=== PATIENT | male | born 1955 | race Caucasian/White ===

== ENCOUNTER 2017-10-14 10:28 | Inpatient (IN) | payer OTHER ==
[~2017-10-14] VITALS: Ht 175.3 cm; Wt 101.6 kg
--- NOTE | ~2017-10-14 | EKG ---
[address] [place] [address] ELECTROCARDIOGRAM REPORT Name: MARTINA WORRELL Room #: 200-I ADM IN M.R.#: [id number] Admission: 10/14/17 Attend Phys: Adin Maxwell MD, Discharge: Date of : 55 Report #: [id number] THIS REPORT FOR: //name// [facility] Test Date: 2017-10-16 Test Time: 06:32:52 Pat Name: MARTINA WORRELL Department: Room: 200 I Gender: M Biology Faculty Member: DIEUDONNE : 1955 Requested By: Adin Maxwell Order Number: [id number] MD: Royce Figueroa Measurements Intervals [place] Rate: 61 P: 73 ID: 155 QRS: 74 QRSD: 115 T: 207 QT: 479 QTc: 483 Interpretive Statements Sinus rhythm Premature supraventricular complexes Nonspecific intraventricular conduction delay Anterior infarct, old Nonspecific T abnormalities, lateral leads Compared to ECG 10/15/2017 07:17:16 No significant change was found Electronically Signed On 10-16-2017 9:20:07 PAWN SHOP KEEPER by Royce Figueroa [email or web address] <ELECTRONICALLY SIGNED> By: Royce Figueroa MD, [facility] 10/16/17 0920 0632 0632 Royce Figueroa MD, [facility] /EPI
--- NOTE | ~2017-10-14 | EKG ---
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 : 1955 Requested By: Annette Gordon Order Number: [id number] MD: Royce Figueroa Measurements Intervals [place] Rate: 61 P: 35 AK: 161 QRS: 54 QRSD: 125 T: 189 QT: 458 QTc: 462 Interpretive Statements Sinus rhythm Atrial premature complex Nonspecific intraventricular conduction delay Nonspecific ST and T wave abnormality Baseline wander in lead(s) V3 Compared to ECG 06/30/2016 07:20:17 No significant change was found Electronically Signed On 10-15-2017 8:28:43 SENIOR TECHNICAL PROGRAM MANAGER by Royce Figueroa [email or web address] <ELECTRONICALLY SIGNED> By: Royce Figueroa MD, [facility] 10/15/17 0828 6 6 Royce Figueroa MD, [facility] /EPI
--- NOTE | ~2017-10-14 | D ---
[facility] [place] [address] DISCHARGE SUMMARY Name: MARTINA WORRELL Lashay Room #: 200-I [facility] IN .R.#: [id number] Admission: 10/14/17 Attend Phys: Adin Maxwell MD, Discharge: Date of : 55 Report #: [id number] THIS REPORT FOR: //name// CC: Adin Hill DO DATE OF SERVICE: 10/16/2017 HOSPITAL COURSE: The patient is a 62-year-old male admitted for recurrent VT and near syncope. Subsequently, brought in to the CCU ruled out and then taken to the catheterization lab to rule out underlying ischemia. There was evidence of high-grade in the proximal and mid solomon circumflex stenosis. I was able to dilate this and stent this with medicated stents. It was a 2.75 x 22 in the proximal circumflex and a 2.75 x 12 in the mid circumflex, there was a more distal stent, which had mild restenosis. There was an SVG to a posterior lateral branch that was intact. The PDA was occluded and the solomon right was occluded. The LAD was occluded and filled via BOONE. LV function mildly reduced. These stents were postdilated up to 3.1 mm in size and he has done well. His ventricular ectopy is markedly improved. So, it may be that this was certainly VT may have had an ischemic component here. The ejection fraction is in the 30% range on echo. I did not perform that LV. I did take LV pressure measurements and a right heart catheterization, which also had a wedge pressure of 20. He was diuresed aggressively and will be sent home on Demadex 20, Crestor 20, full aspirin, Plavix 75, we will hold on valsartan for now, Protonix, amiodarone 400 mg a day, albuterol, insulin, potassium, Flexeril p.r.n., Cardura 2 mg at night, hydrocodone p.r.n. 10/325. He has followup scheduled in 1 week in our office. No lifting for 48 hours, no lying in tub, Jacuzzi or myles for a week. No MRI or dental work for 3 months. DISCHARGE DIAGNOSES: 1. Recurrent ventricular tachycardia probable ischemic driven, resolving. 2. Coronary artery disease with successful percutaneous transluminal coronary angioplasty stent of the solomon circumflex with left internal mammary artery graft intact to a saphenous vein graft to a posterior lateral intact posterior descending artery occluded. 3. Moderate ischemic cardiomyopathy. 4. Diabetes. 5. Hypertension. 6. Hypercholesterolemia. 7. Chronic obstructive pulmonary disease. [address] [address] DISCHARGE SUMMARY Name: MARTINA WORRELL Room #: 200-I [facility] IN ..#: [id number] Admission: 10/14/17 Attend Phys: Adin Maxwell MD, Discharge: Date of : 55 Report #: [id number] Thank you for asking me to assist in the care of this patient. By: 0921 0946 Adin Maxwell MD, FACC /nt
--- NOTE | ~2017-10-14 | 2DMMODE ---
[facility] [place] [address] 2 D/M-MODE ECHOCARDIOGRAM Name: MARTINA WORRELL Room #: 200-I ADM IN [facility]#: [id number] Admission: 10/14/17 Attend Phys: Adin Maxwell, Discharge: Date of : 55 Date of Service: 10/14/17 1552 Report #: [id number] THIS REPORT FOR: //name// APPROVED REPORT Study performed: 10/14/2017 13:13:43 EXAM: Comprehensive 2D, Doppler, and color-flow Echocardiogram Patient Location: Bedside Room #: 200 Status: routine BSA: 2.17 HR: 68 bpm BP: 105/70 mmHg Other Information Study Quality: Adequate Indications ICD 2D Dimensions RVDd: 47.51 mm LVEF(%): 23.08 (>50%) IVSd: 14.13 (7-11mm) LVOT Diam: 22.03 (18-24mm) LVDd: 65.24 mm PWd: 14.98 (7-11mm) Ascending Ao: 38.28 (22-36mm) LVDs: 58.15 (25-40mm) Aortic Root: 34.80 mm IVC: 26.00 mm Mari's LVEF: 23.08 % Volumes Left Atrial Volume (Systole) Single Plane 4CH: 146.58 mL Single Plane 2CH: 153.69 mL LA ESV Index: 81.00 mL/m2 Aortic Valve AoV Peak Mauricio.: 1.47 m/s AO Peak Gr.: 8.67 mmHg LVOT Max P.08 mmHg LVOT Max V: 0.88 m/s DORETHA Vmax: 2.27 cm2 Mitral Valve E/A Ratio: 2.1 MV Decel. Time: 166.83 ms MV E Max Mauricio.: 1.50 m/s [facility] [place] [address] 2 D/M-MODE ECHOCARDIOGRAM Name: MARTINA WORRELL Room #: 200-I [facility] IN .R.#: [id number] Admission: 10/14/17 Attend Phys: Adin Maxwell, Discharge: Date of : 55 Date of Service: 10/14/17 1552 Report #: [id number] MV A Mauricio.: 0.70 m/s MV PHT: 48.38 ms IVRT: 73.82 ms Pulmonary Valve PV Peak Mauricio.: 1.29 m/s PV Peak Gr.: 6.70 mmHg Pulmonary Vein P Vein S: 0.63 m/s P Vein A: 0.11 m/s P Vein D: 0.93 m/s P Vein A Dur.: 78.4 msec P Vein S/D Ratio: 0.68 Tricuspid Valve TR Peak Mauricio.: 2.87 m/s TR Peak Gr.: 32.96 mmHg PA Pressure: 43.00 mmHg Left Ventricle Left ventricle is dilated. There is global hypokinesis of the left ventricle. Mild concentric left ventricular hypertrophy. Left ventricular ejection fraction is severely decreased. LVEF 30%. Grade IV - fixed restrictive diastolic dysfunction. Right Ventricle The right ventricle is normal size. The right ventricular systolic function is normal. Atria Left atrium is dilated. Right atrium is dilated. Device lead is present in the right atrium. Aortic Valve Aortic valve is calcified, trileaflet. No aortic regurgitation is present. There is no aortic valvular stenosis. Mitral Valve The mitral valve is normal in structure. Moderate mitral regurgitation. No evidence of mitral valve stenosis. Tricuspid Valve The tricuspid valve is normal in structure. There is mild tricuspid regurgitation. Estimated PAP 45 mmHg. There is moderate pulmonary hypertension. Pulmonic Valve The pulmonary valve is normal in structure. Mild pulmonic [facility] [address] [place] [address] 2 D/M-MODE ECHOCARDIOGRAM Name: MARTINA WORRELL Room #: 200-I ADM IN [facility]#: [id number] Admission: 10/14/17 Attend Phys: Adin Maxwell, Discharge: Date of : 55 Date of Service: 10/14/17 1552 Report #: [id number] regurgitation. Great Vessels The aortic root is normal in size. IVC is dilated and collapses >50% with inspiration. Pericardium There is no pericardial effusion. <Conclusion> Left ventricular ejection fraction is severely decreased. LVEF 30%. Both atria are dilated. ICD lead in right heart Aortic valve is calcified, trileaflet. No aortic regurgitation or stenosis The mitral valve is normal in structure. Moderate mitral regurgitation. Pulmonary artery pressure of 45mmHg There is no pericardial effusion. <ELECTRONICALLY SIGNED> By: Royce Figueroa MD, FACC 10/14/17 155 51 51 Royce Figueroa MD, FACC /INF
--- NOTE | ~2017-10-14 | CATHLAB ---
[facility] [place] [address] INVASIVE PROCEDURE REPORT Name: MARTINA WORRELL Room #: 200-I ADM IN [facility]#: [id number] Admission: 10/14/17 Attend Phys: Adin Maxwell, Discharge: Date of : 55 Date of Service: 10/15/17 1719 Report #: [id number] THIS REPORT FOR: //name// APPROVED REPORT Patient Details Patient Status: In-Patient Room #: The patient is a 62 year-old male Event Personnel Adin Maxwell Sports Management Professor, Sonya Huggins Monitor, Aurelio Fraser RN, Tricia Parikh Monitor Procedures Performed Art Access - R femoral artery* Grant Access - R femoral vein Right and Left Heart Cath Lt Vent/Cors/Grafts [id number] RLLVCORCAB 81169 Initial Mod Sed Same Phys/QHP Gr5y [id number] 16810 Mod Sed Same Phys/QHP Ea 389667 Renal Bilateral Peripheral Angiography [id number] CVRENALBIL Hemostasis w/ Mynx JOSSY Place w/wo Plasty Single CIRC 295165 Procedure Narrative The patient was brought urgently to the Cardiac Catheterization Laboratory and was prepped and draped in a sterile manner. The Right Groin^ was infiltrated with 1% Lidocaine subcutaneous anesthesia. A PINNACLE 6FR Sheath #[id number] sheath was inserted into the RFA^. Coronary angiography was performed using coronary diagnostic catheters. The right coronary system was accessed and visualized with a JR 4 catheter. The left coronary system was accessed and visualized with a JL 4 catheter. The left ventricle was accessed and visualized with a Pigtail catheter. Left ventricular/Aortic Valve gradient assessed via catheter pullback. Left ventriculogram was performed in ARECHIGA projection. Closure device was deployed with a 6 Fr Mynx. The patient tolerated the procedure well and there were no complications associated with the procedure. There was no hematoma. Intraoperative Conscious Sedation Sedation start time: 09:18 Case end Time: 10:14 Fentanyl 75.0 mcg Versed 2.0 mg Fluoro Time: 11.06 minutes Dose: 1674 mGy Contrast Type and Amount: Visipaque 11.[address] [address] INVASIVE PROCEDURE REPORT Name: MARTINA WORRELL Room #: 200-I [facility] IN [facility]#: [id number] Admission: 10/14/17 Attend Phys: Adin Maxwell, Discharge: Date of : 55 Date of Service: 10/15/17 1719 Report #: [id number] Hemodynamics The right atrial mean pressure is 17 mmHg. The right ventricular pressure is 55/17 mmHg. The pulmonary artery pressure is 56/31 mmHg with a mean of 42 mmHg. The mean pulmonary capillary wedge pressure is 33 mmHg. The aortic pressure is 131/58 mmHg with a mean of 81 mmHg. The left ventricular pressure is 116/13 mmHg with a mean of mmHg. The left ventricular end diastolic pressure is 33 mmHg. The cardiac output using thermo method is 5.90 L/min. The cardiac index using thermo method is 2.72 L/min/m2. PCI Technique Lesion Anticoagulation was achieved with Heparin. Percutaneous coronary intervention was performed on the mid circumflex artery segment. A LAUNCHER 6FR EBU 4 #[id number] Guide Catheter was used to engage the ostium. A Luge Wire .014 x 182CM #[id number] Interventional Guidewire was used to cross the lesion. BALLOON DILATION A Balloon catheter Sprinter OTW 2.5 x 20 #[id number] was inserted and inflated up to 14.00atm for 27seconds. Additional Inflation: 14.00atm for 22seconds. STENT DEPLOYMENT A drug-eluting stent RESOLUTE OTW 2.75 X 12 #[id number] was inserted and inflated up to 16.00atm for 26seconds. POST STENT DEPLOYMENT BALLOON DILATION A Balloon catheter Mozec NC 3.0 x 13 was inserted and inflated up to 20.00atm for 39seconds. Additional Inflation: 22.00atm for 21seconds. Additional Inflation: 20.00atm for 18seconds. STENT DEPLOYMENT A drug-eluting stent RESOLUTE RX 2.75 X 22 #[id number] was inserted and inflated up to 18.00atm for 36seconds. Conclusion #1 successful right heart catheterization cardiac output by thermodilution. #2 successful PTCA stent drug-eluting of the proximal and mid vessel circumflex tuscarora 90% proximal and mid vessel lesions with placement of 27 5 x 12 27 5 x 22 resolute drug-eluting stents Postdilated with 30 noncompliant balloons to 20 eugene. #3 proximal LAD occluded #4 left main free of disease giving rise only to the circumflex artery #4 BOONE to LAD is intact with mild diffuse disease in his LAD and retrograde filling diagonal [facility] [address] [place] [address] INVASIVE PROCEDURE REPORT Name: MARTINA WORRELL Room #: 200-I ADM IN M.R.#: [id number] Admission: 10/14/17 Attend Phys: Adin Maxwell, Discharge: Date of : 55 Date of Service: 10/15/171718 Report #: [id number] #5 left renal artery with a 50% ostial lesion posterior leaflet prolapse #6 right renal artery widely patent #7 tuscarora right coronary occluded #8 SVG filling a posterior lateral branch is moderately disease with a distal stent and appears that the PDA is occluded but it is filling posterior lateral branch Recommendations and plan continue aggressive risk factor modification dual antiplatelet therapy indefinitely. Patient had significant hypotension with inflation of the circumflex OM this is a large viable segment should be markedly improved with regards to VT and symptoms. No lifting for 48 hours no line tub Jacuzzi or Tsai for a week no MRI or dental work for 3 months <ELECTRONICALLY SIGNED> By: Adin Maxwell MD, FACC 10/15/171718 18 18 Adin Maxwell MD, FACC /INF
--- NOTE | ~2017-10-14 | EKG ---
[place] [address] [facility] [place] [address] ELECTROCARDIOGRAM REPORT Name: MARTINA WORRELL Lashay Room #: 200-I ADM IN M.R.#: [id number] Admission: 10/14/17 Attend Phys: Adin Maxwell MD, Discharge: Date of : 55 Report #: [id number] THIS REPORT FOR: //name// [facility] Test Date: 2017-10-15 Test Time: 12:17:24 Pat Name: MARTINA WORRELL Department: Room: 200 I Gender: M Paying Teller: Tomasa PIRES : 1955 Requested By: Adin Maxwell Order Number: [id number] MD: Royce Figueroa Measurements Intervals [place] Rate: 68 P: ME: 159 QRS: 63 QRSD: 121 T: 205 QT: 453 QTc: 482 Interpretive Statements Atrial-paced complexes Nonspecific intraventricular conduction delay Nonspecific T abnormalities, lateral leads Poor R wave progression Compared to ECG 10/15/2017 07:17:16 No significant change was found Electronically Signed On 10-16-2017 9:08:21 JAVA SOFTWARE ARCHITECT by Royce Fgiueroa [email or web address] <ELECTRONICALLY SIGNED> By: Royce Figueroa MD, [facility] 10/16/17 0908 1217 1217 Royce Figueroa MD, [facility] /EPI
--- NOTE | ~2017-10-14 | HC ---
[facility] [address] [place] [address] CONSULTATION Name: MARTINA WORRELL Room #: 200-I [facility]#: [id number] Admission: 10/14/17 Attend Phys: Adin Maxwell MD, Discharge: 10/16/17 Date of : 55 Report #: [id number] THIS REPORT FOR: //name// CC: Adin Hill DATE OF SERVICE: 10/14/2017 REASON FOR CONSULTATION: Elevated creatinine. HISTORY OF PRESENT ILLNESS: This is a 62-year-old male with a known coronary artery disease and prior ventricular arrhythmias. He has an existing AICD. He was traveling from his home in [place], [place] to ____ [place] to see Dr. Maxwell, when on the way, had his AICD fire four consecutive times. He ended up in the hospital briefly in [place], [place]. He was then discharged from there to follow up with Dr. Maxwell. He has not had further firings of his AICD since that time, but according to Dr. Maxwell's note he upon query had V fib. On a couple of these episodes, he has also had some ventricular tachycardia. He has been admitted to the hospital and started on IV amiodarone. The patient also has a history of coronary artery disease with 3-vessel CABG in 1994. He has a stent to the circumflex and obtuse marginal in 2013. We are asked to see him for followup and evaluation of his current renal disease. The patient previously seen by our group in 2014 with similar findings of chronic kidney disease stage 3 related to diabetes and hypertension. Also, at that time he presented with a creatinine level of about 2.5, was given IV fluids and the creatinine came down to about 1.5 to 1.6. It has been in that range on several other hospitalizations over the past few years. The patient states that he follows chronically with the academic support center director, Dr. Booth who sees him in an outreach clinic. He was told that his renal function was actually quite a bit better the last time he saw him, although he does not remember a creatinine nor an EGFR number. He is unaware of proteinuria. He is a bit uncertain as to medications. Dr. Maxwell's list shows valsartan 40 mg daily, but the patient is unaware if he is on that thinking that it had previously been stopped. I cannot find that he is on any LAKESHIA inhibitor. The patient's expresses no problems with urination. He says he has had some edema and problems with heart failure and has been on increased doses of torsemide 20 mg b.i.d. more recently, but he thinks it is actually improved somewhat. He has nocturia twice nightly, but no other urinary symptoms. He tried to avoid sodium in his diet. PAST MEDICAL HISTORY: Longstanding diabetes and hypertension. He has coronary artery disease with previous interventions as noted above. He has had the AICD placed. He also has peripheral vascular disease including common iliac stents and some carotid artery disease. He also has hypertension and hyperlipidemia. He continues to smoke about half of pack cigarettes daily. He has had a previous cholecystectomy. [address] [address] CONSULTATION Name: MARTINA WORRELL JR Room #: 200-I [facility] IN [facility].#: [id number] Admission: 10/14/17 Attend Phys: Adin Maxwell MD, Discharge: 10/16/17 Date of : 55 Report #: [id number] MEDICATIONS: On admission based on Dr. Maxwell's records, Diovan 40 mg daily, torsemide 20 mg b.i.d., carvedilol 6.25 mg b.i.d., amiodarone 200 mg b.i.d., aspirin 81 mg daily, Symbicort inhaler, Plavix 75 mg daily, Flexeril 10 mg p.r.n., doxazosin 2 mg daily, Levemir and also short acting insulin, Xopenex inhaler, pantoprazole 40 mg daily, potassium 20 mEq b.i.d., Crestor 40 mg daily and Spiriva inhaler. ALLERGIES: OXYCODONE WITH MENTAL STATUS CHANGES. FAMILY HISTORY: Negative for renal disease. SOCIAL HISTORY: The patient is and lives in [place], [place]. He is medically disabled from work. Unfortunately, continues to smoke as noted above, but states he is going to quite the first of the year as he has made his decision to do that. REVIEW OF SYSTEMS: Recent dyspnea, some cough, no sputum, no madyson chest pain. He had no symptoms of palpitations prior to his AICD firing. Denies nausea or vomiting, change in bowel habits. No dysuria, nocturia twice nightly persists. No fevers, chills or sweats. PHYSICAL EXAMINATION: GENERAL: A 62-year-old male, awake, alert and responsive. VITAL SIGNS: Blood pressure 105/70, heart rate 62, temperature 97.9 and oxygen saturation 93%. HEENT: Shows pupils are equal and reactive. Sclerae nonicteric. Oral mucosa is moist. NECK: Veins are not distended. No bruits. CHEST: Fairly symmetrical, clear, no wheezes or rhonchi. BACK: Shows no CVA tenderness. HEART: Has a regular rate and rhythm at this point. ABDOMEN: Has active bowel sounds, is soft and nontender. No organomegaly or masses. At this time, he has no peripheral edema. LABORATORY DATA: Sodium 141, potassium 4.3, chloride 102, bicarbonate 28, BUN 43, creatinine 2.5, glucose 300, calcium 8.9, total protein 6.5 and albumin 3.5. Troponin is less than 0.04. White count 7.8, hemoglobin 12.0, hematocrit 34.5 and platelets 99,000. No urinalysis yet. ASSESSMENT: 1. Chronic kidney disease, stage 3. His creatinine is a bit higher than normal. I do not know what his most recent baseline is, but it had been around 1.6 to 1.8 over the past several years here, so I expect it is in that similar range. There is concern over him getting a heart catheterization. His Diovan has already been stopped. We will check urine studies including proteinuria [address] [address] CONSULTATION Name: MARTINA WORRELL Room #: 200-I [facility] IN [facility].#: [id number] Admission: 10/14/17 Attend Phys: Adin Maxwell MD, Discharge: 10/16/17 Date of : 55 Report #: [id number] again. I expect that creatinine will come back down. He has no symptoms to suggest change his kidneys such as obstruction. I do not think we need a renal ultrasound at this time. We will monitor urine output, check urine studies, repeat labs in the morning. His creatinine is slightly better and I expect it will be. He will be okay for heart catheterization. We want to premedicate with some IV normal saline. We will also want to continue that postprocedure. Obviously, the biggest thing is to minimize the exposure to contrast. Using a smallest volume possible and using isosmolar contrast will all be of benefit. I have talked about this with the patient and he expresses understanding. 2. Coronary artery disease by history with a previous bypass and percutaneous interventions. Repeat heart catheterization to follow. 3. Ventricular arrhythmias with multiple discharges of his AICD. Now on amiodarone infusion. 4. Hypertension, longstanding. Blood pressure is actually on the low side today. We will follow along and see if that needs further alterations. 5. Type 2 diabetes, on insulin, proteinuria, status unknown, we need to track. 6. Continued tobacco use disorder. 7. Reactive airways on multiple inhalers. PLAN: 1. At this point, it should be adequate to hold his Diovan and hold his diuretics. 2. Recheck labs in the morning. 3. Check urine including proteinuria evaluation. 4. Prior to heart catheterization, he will need some IV fluids in the form of normal saline that will need to be continued post-procedure. 5. Follow along closely in his care. 6. Minimize use of the contrast as noted above. 7. We will follow along in his care. <ELECTRONICALLY SIGNED> By: Bryson Squires MD 10/17/17 0719 1845 0341 Bryson Squires MD /nt
[~2017-10-14 10:28] MED LIST: ALDACTONE25 MG PO; AMBIEN 10 MG TA10 MG PO; ASA5UEC PO; ASPIRIN EC81 M1 PO; ATIVAN0.5 MG PO; B-12 DOTS500 MCG PO; CALCIUM + D SO1 EACH PO; CALCIUM500 MG PO; CARDURA4 MG PO; CARDURA8 MG PO; CATAPRES PO; CATAPRES0.1 MG PO; CELEXA 20 MG TA20 M1 PO; CELEXA20 MG PO; CENTRUM SILVER1 EAC4 PO; CIALIS2.5 MG PO; CLONIDINE0.1 PO; CLOPIDOGREL PO; COLACE100 MG PO; COREG CR40 MG PO; COREG6.25 MG PO; CYMBALTA60 MG PO; DIOVAN 80 MG TA80 M1 PO; DIOVAN HCT 3201 EAC1 PO; DOXYCYCLINE 10100 MG PO; FLEXERIL PO; FLOMAX0.4 MG PO; GABAPENTIN PO; GLIPIZIDE ER5 MG PO; GLUCOPHAGE1000 MG PO; GLUCOTROL5 MG PO; HUMALOG100 UNIT/1 SUBQ; HYDROCODON-ACE1 EAC5 PO; IMDUR 60 MG TAB60 M1 PO; IMDUR120 MG PO; JANUMET 50-1,01 EACH PO; K-DUR 20 MEQ T20 MEQ PO; K-DUR10 ME1 PO; KEFLEX250 MG; KLOR-CON 1010 MEQ PO; LANTUS100 UNIT/M SUBQ; LASIX 40 MG TAB40 M2 PO; LEVALBUTER0.31 MG/3 IH; LEVAQUIN 500 M500 M2 PO; LIPITOR40 MG PO; METFORMIN HCL500 MG PO; MOBIC15 MG PO; MS CONTIN 30 MG30 M1 PO; MUCINEX600 MG PO; MULTIVITAMINS1 EAC7 PO; NEURONTIN 300300 M1 PO; NITROSTAT0.4 MG SUBLING; NORVASC 5 MG TAB5 MG PO; NYSTATIN15 G1 TOP; PHENERGAN 25 MG25 MG PO; PLAVIX 75 MG TA75 M1 PO; POTASSIUM20 PO; PROTONIX40 M4 PO; RANEXA1000 MG PO; SPIRIVA INH; SYMBICORT160 MCG/4. INH; TYLENOL325 MG PO; VITAMIN D31000 UNIT PO; VITAMIN D32000 UNI1 PO; VITAMINC500 PO
[2017-10-14 11:59] LABS: HEMATOCRIT 34.5 % (42.0-52.0); MCH 29.7 pg (26.0-34.0); MCHC 34.7 g/dL (28.0-37.0); MCV 85.7 fL (80.0-100.0); RBC 4.03 mil/uL (4.50-6.00)
[2017-10-14 12:01] VITALS: BP 105/70
[2017-10-14 16:34] LABS: ALBUMIN 3.5 g/dL (3.4-5.0); ALKALINE PHOSPHATASE 100 U/L (46-116); ANION GAP 11 mmol/L (7-16); BUN 43 mg/dL (7-18); CALCIUM 8.9 mg/dL (8.5-10.1); CHLORIDE 102 mmol/L (98-107); CO2 28 mmol/L (21-32); CREATININE 2.5 mg/dL (0.7-1.3); GLUCOSE 330 mg/dL (74-106); POTASSIUM 4.3 mmol/L (3.5-5.1); SGOT 17 U/L (15-37); SGPT 22 U/L (30-65); SODIUM 141 mmol/L (136-145); TOTAL BILIRUBIN 0.5 mg/dL (<0.1-1.0); TOTAL PROTEIN 6.5 g/dL (6.4-8.2); TROPONIN-I < 0.04 ng/mL (<0.06)
[2017-10-14 19:17] VITALS: BP 102/61
[2017-10-14 20:44] LABS: URINE BILIRUBIN NEGATIVE (Negative); URINE BLOOD NEGATIVE (Negative); URINE COLOR YELLOW; URINE GLUCOSE-RANDOM* NEGATIVE (Negative); URINE KETONES NEGATIVE (Negative); URINE NITRITE NEGATIVE (Negative); URINE PROTEIN (DIPSTICK) NEGATIVE (Negative); URINE UROBILINOGEN 0.2 E.U./dl (0.2-1.0)
[2017-10-14 20:51] LABS: PROT/CREAT RATIO 0.1; URINE PROTEIN-RANDOM* < 6.0 mg/dL (<11.9)
[2017-10-15] VITALS (17 sets, daily range): BP systolic 93–152; BP diastolic 46–78
[2017-10-15 03:55] LABS: ALBUMIN 3.3 g/dL (3.4-5.0); CALCIUM 8.7 mg/dL (8.5-10.1); CREATININE 2.2 mg/dL (0.7-1.3); POTASSIUM 3.6 mmol/L (3.5-5.1); TOTAL BILIRUBIN 0.5 mg/dL (<0.1-1.0); TOTAL PROTEIN 6.4 g/dL (6.4-8.2)
[2017-10-16 02:47] VITALS: BP 122/63
[2017-10-16 04:11] LABS: ALBUMIN 3.3 g/dL (3.4-5.0); CREATININE 1.8 mg/dL (0.7-1.3); PHOSPHORUS 3.5 mg/dL (2.5-4.9); POTASSIUM 3.5 mmol/L (3.5-5.1)
[2017-10-16 07:00] VITALS: BP 121/71
[2017-10-16] MEDS ORDERED: PACERONE 200 M200 M1 PO (07:42)
[2017-10-16] MEDS ORDERED: DEMADEX20 MG PO (07:42)
[2017-10-16] MEDS ORDERED: CRESTOR40 MG PO (07:42)
[2017-10-16 11:12] VITALS: BP 125/69
[2017-10-16] MEDS ORDERED: DIOVAN 80 MG TA80 M1 PO (11:37)
[2017-10-16 12:15] VITALS: BP 125/69
[2017-10-16 13:06] VITALS: BP 125/69
== END 2017-10-16 13:11 | disposition home or self-care (01) | DRG 246 ==
LOC: 2N 10:28 → ENTRNSPT 10-16 10:58 → EDTRNSPTSTS 10-16 11:07 → DELTRNSPT 10-16 11:20 → ENTRNSPT 10-16 12:48 → EDTRNSPTSTS 10-16 12:50 → CMPTRNSPT 10-16 13:01 → 2N 10-16 13:11
PROVIDERS: Internal Medicine Nephrology; Nurse Practitioner Adult Health
PROC: B215YZZ Fluoroscopy of Left Heart using Other Contrast (ICD-10-PCS; principal; 2017-10-15)
PROC: 027035Z Dilation of Coronary Artery, One Artery with Two Drug-eluting Intraluminal Devices, Percutaneous Approach (ICD-10-PCS; principal; 2017-10-15)
PROC: B4181ZZ Fluoroscopy of Bilateral Renal Arteries using Low Osmolar Contrast (ICD-10-PCS; principal; 2017-10-15)
PROC: B211YZZ Fluoroscopy of Multiple Coronary Arteries using Other Contrast (ICD-10-PCS; principal; 2017-10-15)
PROC: 4A023N8 Measurement of Cardiac Sampling and Pressure, Bilateral, Percutaneous Approach (ICD-10-PCS; principal; 2017-10-15)
DX: I47.2 Ventricular tachycardia (principal); N17.0 Acute kidney failure with tubular necrosis; E44.1 Mild protein-calorie malnutrition; I13.10 Hypertensive heart and chronic kidney disease without heart failure, with stage 1 through stage 4 chronic kidney disease, or unspecified chronic kidney disease; I25.10 Atherosclerotic heart disease of native coronary artery without angina pectoris; E11.9 Type 2 diabetes mellitus without complications; E11.51 Type 2 diabetes mellitus with diabetic peripheral angiopathy without gangrene; F17.210 Nicotine dependence, cigarettes, uncomplicated; N18.3 Chronic kidney disease, stage 3 (moderate); I49.9 Cardiac arrhythmia, unspecified; I25.5 Ischemic cardiomyopathy; J44.9 Chronic obstructive pulmonary disease, unspecified; E78.00 Pure hypercholesterolemia, unspecified; E78.1 Pure hyperglyceridemia; Z95.810 Presence of automatic (implantable) cardiac defibrillator; Z95.1 Presence of aortocoronary bypass graft; Z95.820 Peripheral vascular angioplasty status with implants and grafts; Z90.49 Acquired absence of other specified parts of digestive tract; Z88.6 Allergy status to analgesic agent; Z95.5 Presence of coronary angioplasty implant and graft; Z79.4 Long term (current) use of insulin; Z79.899 Other long term (current) drug therapy; Z45.02 Encounter for adjustment and management of automatic implantable cardiac defibrillator
CPT/HCPCS: 10797